=== PATIENT | male | born 1980 | race Caucasian/White ===

== ENCOUNTER 2023-08-15 05:35 | Emergency (ER) | payer MEDICAID ==
[~2023-08-15] VITALS: Ht 170.2 cm; Wt 118.2 kg
[2023-08-15 06:51] LABS: Lactic Acid w/Reflex 2.2 mmol/L (0.4-2.0)
[2023-08-15 06:52] LABS: Alanine Aminotransferase 37 U/L (7-40); Albumin 4.5 g/dL (3.2-4.8); Alkaline Phosphatase 126 U/L (46-116); Anion Gap 6 (5-15); Aspartate Aminotransferase 22 U/L (13-40); BUN/Creatinine Ratio 7.8 (10.0-20.0); Bilirubin, Total 0.7 mg/dL (0.2-1.0); Blood Urea Nitrogen 7 mg/dL (9-23); Carbon Dioxide 26 mmol/L (20-30); Chloride 103 mmol/L (98-107); Glucose 121 mg/dL (74-106); Potassium 3.8 mmol/L (3.5-5.1); Sodium 135 mmol/L (136-145); Total Protein 8.1 g/dL (5.7-8.2)
[2023-08-15 07:14] LABS: Basophils # (auto) 0 10 ^3/uL (0-0.2); Basophils % (auto) 0.6 % (0.0-2.0); Eosinophils # (auto) 0.3 10 ^3/uL (0-0.8); Eosinophils % (auto) 3.5 % (0.0-7.0); Hematocrit 48.4 % (41.0-53.0); Hemoglobin 16.4 g/dL (13.5-17.5); Lymphocytes # (auto) 1.5 10 ^3/uL (0.4-5.4); Lymphocytes % (auto) 18.4 % (10.0-50.0); Mean Corpuscular Hgb Conc. 33.9 g/dL (32.0-36.0); Mean Corpuscular Volume 88.5 fL (80.0-100.0); Monocytes # (auto) 0.5 10 ^3/uL (0-1.3); Monocytes % (auto) 6.5 % (0.0-12.0); Neutrophils # (auto) 5.9 10 ^3/uL (1.6-8.6); Nucleated Red Blood Cells % 0.1 %; Red Blood Cells 5.47 10^6/uL (4.5-5.90); Red Cell Distribution Width 14.2 % (11.8-14.3); White Blood Cell 8.4 10^3/uL (4.4-10.8)
[2023-08-15 07:59] VITALS: TEMP 98.7
[2023-08-15] MEDS ORDERED: cefTRIAXone SOD 1,000 MG VL IM ONE (08:15)
[2023-08-15] MEDS ORDERED: CLINDAMYCIN HCL 150 MG CAP PO ONE (08:15)
[2023-08-15] MEDS ORDERED: LEVO500T91 PO (09:38)
[2023-08-15] MEDS ORDERED: CLIN300C70 PO (09:38)
[2023-08-15 09:45] VITALS: BP 156/116; PULSE 94; RESP 17; O2SAT 95
== END 2023-08-15 10:25 | disposition home or self-care (01) ==
LOC: ER 05:35
DX: L03.211 Cellulitis of face (principal); F17.210 Nicotine dependence, cigarettes, uncomplicated; Z88.8 Allergy status to other drugs, medicaments and biological substances
CPT/HCPCS: 36415; 70487; 80053; 83605; 85025; 87040; 96372; 99285; J0696